=== PATIENT | female | born 1955 | race Caucasian/White ===

== ENCOUNTER 2025-03-14 12:39 | Emergency (ER) | payer MEDICARE, SELFPAY ==
[2025-03-14] VITALS (13 sets, daily range): BP systolic 84–142; BP diastolic 48–84; PULSE 67–87; O2SAT 94–100
--- NOTE | 2025-03-14 | XR_ITS ---
The [address] [address] Patient Name: BENTLEY RIOS MRN: [id number] date: 1955 Sex: F Assigned Patient Location: ED.MAIN Current Patient Location: ED.MAIN Accession/Order Number: [id number] Exam Date: 03/14/2025 14:07 Report Date: 03/14/2025 14:10 At the request of: VICKY TONY MD Procedure: XR chest 1V Single view chest: CLINICAL HISTORY: respiratory distress COMPARISON: None FINDINGS: Imaging of the lower chest/upper abdomen demonstrates that the enteric tube is in satisfactory position with its tip within the stomach. No free air is seen. XR/XR chest 1V IMPRESSION: ENTERIC TUBE TIP IN SATISFACTORY POSITION. Impression dictated by: Jerry Olmstead Jr., DBernadetteOBernadette 03/14/2025 2:10 PM Dictation Location: [facility] Electronically authenticated by: [id number] Y Date: 03/14/2025 14:10
--- NOTE | 2025-03-14 12:46 | PC.NURSE ---
Addendum entered by Radha Felipe 03/14/25 13:24: 1 shock in between Epi's 1st Shock at 100 and 2nd shock at 200 Original Note: Pt collapsed unresponsive, code purple called, pt transferred to ER rm 5. placed on monitor CPR and bagging 1 EPI in at 1243 1 EPI in at 1247 1 Shock Pulse check PEA on monitor CPR and bagging Bicarb in ET tube in place, CPR in progress pulse obtained bilat good breath sounds obtained by ER
--- NOTE | 2025-03-14 13:04 | ECG_ITS ---
The [facility] Test Date: 2025-03-14 Pat Name: BENTLEY RIOS Department: Room: - Gender: Female Developmental Therapist: : 1955 Requested By: [id number] Order Number: [id number] Reading MD: PARAS ZAVALA M.D. Measurements Intervals [place] Rate: 80 P: 60 ID: [id number] QRS: 69 QRSD: 106 T: 111 QT: 356 QTc: 392 Interpretive Statements 1100 Sinus rhythm Anterior and inferior injury or acute infarct 9150 abnormal ECG No previous ECG available for comparison Electronically Signed On 03-15-2025 17:42:47 EDT by PARAS ZAVALA M.D.
--- NOTE | 2025-03-14 13:04 | XR_ITS ---
[address] [address] Patient Name: BENTLEY RIOS MRN: [id number] date: 1955 Sex: F Assigned Patient Location: ED.MAIN Current Patient Location: ED.MAIN Accession/Order Number: [id number] Exam Date: 03/14/2025 13:35 Report Date: 03/14/2025 13:38 At the request of: VICKY TONY MD Procedure: XR chest 1V Single view chest: CLINICAL HISTORY: Cardiac arrest COMPARISON: None FINDINGS: ET tube in satisfactory position. Enteric tube is identified with its tip not seen below the level of the diaphragm. Cardiomegaly. Right upper lobe airspace disease. No pneumothorax, pleural effusion or free air. XR/XR chest 1V IMPRESSION: ET TUBE IS IN SATISFACTORY POSITION. ENTERIC TUBE TIP IS NOT SEEN BELOW THE LEVEL OF THE DIAPHRAGM. RIGHT UPPER LOBE AIRSPACE DISEASE. Impression dictated by: Jerry Olmstead Jr., D.O. 03/14/2025 1:38 PM [facility] Electron[facility] authenticated by: [id number] Y Date: 03/14/2025 13:38
[2025-03-14 13:12] LABS: Hematocrit 37.2 % (36.0-48.0); Hemoglobin 12.5 g/dL (12.0-16.0); Immature Granulocytes Abs Auto 0.02 10^3/uL (0.00-0.03); Immature Granulocytes Pct Auto 0.3 % (0.0-0.5); Lymphocytes Absolute Auto 3.3 10^3/uL (1.2-3.8); Mean Corpuscular HGB Conc 33.6 g/dL (29.9-35.2); Mean Corpuscular Hemoglobin 28.7 pg (26.7-34.0); Mean Corpuscular Volume 85.5 fL (81.0-99.0); Platelet Count 134 10^3/uL (150-450); Red Blood Count 4.35 10^6/uL (4.20-5.40); White Blood Count 7.1 10^3/uL (4.0-11.0)
[2025-03-14 13:21] LABS: INR 1.11; Prothrombin Time 11.6 sec (9.0-11.6)
--- NOTE | 2025-03-14 13:22 | ED.GENADUL1 ---
HPI HPI - General Adult General Chief complaint: Cardiac Arrest/CPR Stated complaint: UNRESPONSIVE Time Seen by Provider: 03/14/25 13:03 History of Present Illness HPI narrative: 69-year-old female presented in cardiac arrest. The history is obtained from the patient's . He was driving in a car with her and she became suddenly unresponsive. He states that she was occasionally trying to take of breath. He drove straight here and it took several minutes to get here. Upon arrival she was in arrest and she was taken into a room where CPR was initiated and [id number] was initiated as well. She did not have any complaints earlier today and has no history of CAD. She had received a letter in the mail yesterday about an abnormal mammogram that would need further testing. She has a history of diabetes and hypertension. No history is obtainable from the patient herself. Review of Systems ROS Narrative Not obtainable, unresponsive Exam Narrative Exam Narrative: Nurses note and vital signs reviewed and patient is not hypoxic. General: The patient is unresponsive and cyanotic upon arrival. Skin: Warm, dry, pallor noted. There is cyanosis Head: Normocephalic, atraumatic Eye: Normal conjunctiva, no drainage Ears, Nose, Mouth, and Throat: oral mucosa is moist. Nares patent. Cardiovascular: No heart tones upon arrival Respiratory: No breath sounds upon arrival. No respiratory effort GI: Obese and nondistended Musculoskeletal: No obvious deformity Neurological: No response to painful stimuli. Nonverbal. GCS 3 Psychiatric: Cannot be assessed. Constitutional Vital Signs, click to edit/add: Last Vital Signs Pulse 77 03/14/25 13:10 Resp 19 03/14/25 13:05 BP 104/64 03/14/25 13:05 Pulse Ox 97 03/14/25 13:10 Course Vital Signs Vital signs: Vital Signs Pulse Rate 85 03/14/25 12:55 Blood Pressure 138/84 03/14/25 12:55 Pulse Rate 77 03/14/25 13:10 Respiratory Rate 19 03/14/25 13:05 Blood Pressure 104/64 03/14/25 13:05 Pulse Oximetry 97 03/14/25 13:10 Medical Decision Making MDM Narrative Medical decision making narrative: The patient was in cardiac arrest upon arrival. CPR was initiated and [id number] was applied. On the monitor she was in V-fib. She was given IV epinephrine, 2 doses, and defibrillated twice. After the second defibrillation she returned to sinus rhythm with a pulse. The patient was orotracheally intubated by me on third attempt with visualization of the tube passing between the cords. Positive change on the capnometer and bilateral breath sounds present. Postintubation chest x-ray shows that the ET tube should be advanced 2 cm and this was ordered. EKG on my interpretation shows STEMI and a copy of the EKG was sent to Dr. Clemons who agrees. He requested IV heparin and Brilinta passed through NG tube and this was ordered as well as aspirin. The patient will be flown by [facility] to [facility] where she will be taken to the [facility] for emergent heart catheterization. This was discussed thoroughly with her and the is in agreement with the plan and the patient is stable for transfer. Differential Diagnosis Differential Diagnosis: STEMI, V-fib, cardiac arrest, respiratory arrest Lab Data Lab results reviewed: Yes I reviewed the patient's lab results Labs: Lab Results 03/14/25 03/14/25 Range/Units 12:52 13:00 WBC 7.1 (4.0-11.0) 10^3/uL RBC 4.35 (4.20-5.40) 10^6/uL Hgb 12.5 (12.0-16.0) g/dL Hct 37.2 (36.0-48.0) % MCV 85.5 (81.0-99.0) fL MCH 28.7 (26.7-34.0) pg MCHC 33.6 (29.9-35.2) g/dL RDW 13.3 (11.0-15.0) % Plt Count 134 L (150-450) 10^3/uL MPV 11.9 (9.5-13.5) fL Neut % (Auto) 44.2 (43.0-75.0) % Lymph % (Auto) 46.4 (20.5-60.0) % [place] % (Auto) 6.8 (1.7-12.0) % Eos % (Auto) 1.7 (0.9-7.0) % Baso % (Auto) 0.6 (0.2-2.0) % Neut # (Auto) 3.2 (1.4-6.5) 10^3/uL Lymph # (Auto) 3.3 (1.2-3.8) 10^3/uL [place] # (Auto) 0.5 (0.3-0.8) 10^3/uL Eos # (Auto) 0.1 (0.0-0.7) 10^3/uL Baso # (Auto) 0.0 (0.0-0.1) 10^3/uL Abs Immat Gran (auto) 0.02 (0.00-0.03) 10^3/uL Imm/Tot Granulo (auto) 0.3 (0.0-0.5) % PT 11.6 (9.0-11.6) sec INR 1.11 APTT 28.0 (22.3-36.2) sec POC Glucose 254 H (74-106) mg/dL Imaging Data Chest x-ray: My impression: Initial chest x-ray my interpretation shows the ET tube should be advanced and there appears to be density in the right upper lung field. Second EKG shows confirmation of NG tube placement in the stomach. ECG Data Attestation: I personally reviewed and interpreted this ECG as follows: (EKG on my interpretation shows STEMI with sinus rhythm and rate of 80) Critical Care Time Critical Care Time Critical Care Time: Yes Total Critical Care Time: 70 Attestation: Due to the high probability of sudden and clinically significant deterioration in the patient's condition he/she required the highest level of my preparedness to intervene urgently I provided critical care time including documentation time, medication orders and management, reevaluation, vital sign assessment, ordering and reviewing of lab tests, ordering and reviewing of x-ray studies, and admission orders. Aggregate critical care time is 70 minutes including only time during which I was engaged in work directly related to his/her care and did not include time spent treating other patients simultaneously. Discharge Plan Discharge Chief Complaint: Cardiac Arrest/CPR Clinical Impression: Cardiac arrest, ST elevation (STEMI) myocardial infarction Patient Disposition: [facility] Time of Disposition Decision: 13:21 Discharge Location: [facility] Condition: Critical Mode of Transportation: [employer]
[2025-03-14 13:25] LABS: Partial Thromboplastin Time 28.0 sec (22.3-36.2)
[2025-03-14 13:28] LABS: Anion Gap 13.3; Blood Urea Nitrogen 21.0 mg/dL (7.0-18.0); Calcium 8.8 mg/dL (8.5-10.1); Carbon Dioxide 25.2 mmol/L (21.0-32.0); Chloride 104 mmol/L (98-107); Estimated GFR (African America >60 (>=60 mL/min/1.73m^2); Estimated GFR (Non-African Ame >60 (>=60 mL/min/1.73m^2); Glucose 136 mg/dL (74-106); Potassium 4.5 mmol/L (3.5-5.1); Sodium 138 mmol/L (136-145)
[2025-03-14 13:30] LABS: ABG PCO2 34.6 mmHg (35.0-45.0); Allen Test POSITIVE (POSITIVE); HCO3 ABG 16.3 mmol/L (22.0-26.0); PO2 ABG 317.0 mmHg (80.0-100.0)
[2025-03-14 13:31] LABS: O2 Mode VENT; Oxygen Saturation ABG >100.0 %; Puncture Site RRAD; Rate 16
[2025-03-14] MEDS: HEPARIN SODIUM (PORCINE) 5,000 UNIT/ML VIAL 4000 UNIT IV (13:32)
[2025-03-14 13:33] LABS: NT Pro B Type Natriuretic Pept 275.0 pg/mL (<=900.0)
[2025-03-14] MEDS: HEPARIN SODIUM,PORCINE/D5W 25,000 UNIT/500 ML IV.SOLN 20 UNIT IV (13:34)
[2025-03-14] MEDS: TICAGRELOR 90 MG TABLET 180 MG PO (13:35)
[2025-03-14] MEDS: ASPIRIN 325 MG TABLET PO (13:37)
== END 2025-03-14 13:48 | disposition short-term general hospital (02) ==
PROVIDERS: Emergency Provider Emergency Medicine
DX: I46.9 Cardiac arrest, cause unspecified (principal); I21.3 ST elevation (STEMI) myocardial infarction of unspecified site; R94.31 Abnormal electrocardiogram [ECG] [EKG]
CPT/HCPCS: 36415; 36600; 51702; 71045; 80048; 82805; 82948; 83880; 84484; 85025; 85610; 85730; 92950; 93005; 94002; 96374; 99291; J0169; J1644